=== PATIENT | female | born 1940 | race Caucasian/White ===

== ENCOUNTER 2021-01-08 19:01 | Observation (INO) ==
[2021-01-08] MEDS ORDERED: Lidocaine PATCH 5% PATCH TRANSDERM ONE (20:21)
[2021-01-08] MEDS ORDERED: Lidocaine Patch REMOVE PATCH PATCH OFF SCH (21:00)
[2021-01-08 23:55] LABS: ABS Basophils 0.1 10^3/ul (0-0.2); ABS Eosinophils 0.3 10^3/ul (0-0.6); ABS Lymphocytes 1.7 10^3/ul (1.0-4.8); Eosinophil % 3.5 %; Hematocrit 36 % (35-47); Hemoglobin 11.7 g/dL (12.0-16.0); Lymphocyte % 18.8 %; Mean Corpuscular HGB Conc 33 g/dL (31-36); Mean Corpuscular Hemoglobin 30 pg (27-31); Mean Corpuscular Volume 91 fL (80-97); Mean Platelet Volume 8.3 fL (7.4-10.4); Platelet Count 338 10^3/uL (150-450); Red Blood Count 3.92 10^6 /uL (3.70-4.87); Red Cell Distribution Width 15 % (10-15); White Blood Count 9.2 10^3/uL (3.5-10.8)
[2021-01-09 00:12] LABS: Albumin 3.8 g/dL (3.2-5.2); Albumin/Globulin Ratio 1.1 (1-3); C Reactive Protein 43.51 mg/L (<8.01); Calcium 9.2 mg/dL (8.6-10.3); EGFR African American 140.4 (>60); Globulin 3.4 g/dL (2-4); Potassium 3.4 mmol/L (3.5-5.0); Total Bilirubin 0.5 mg/dL (0.2-1.0); Total Protein 7.2 g/dL (6.4-8.9)
[2021-01-09 01:06] LABS: Urine Appearance Clear; Urine Bilirubin Negative (Negative); Urine Blood 1+ (Negative); Urine Color Yellow; Urine Glucose Negative (Negative); Urine Ketones Negative (Negative); Urine Nitrite Negative (Negative); Urine Protein Negative (Negative); Urine Urobilinogen Negative (Negative)
[2021-01-09] MEDS ORDERED: Ondansetron 4 mg VIAL 2 MG/ML 2 ml VIAL IV PRN (01:08)
[2021-01-09] MEDS ORDERED: Acetaminophen IV 1 GM/100ML 100 ML IV PRN (01:12)
[2021-01-09 01:15] LABS: Urine Bacteria 1+ (Absent); Urine Red Blood Cell Trace(0-2/hpf) (Absent); Urine Squamous Epithelial Cell Present (Absent); Urine White Blood Cell Trace(0-5/hpf) (Absent)
[2021-01-09 01:38] LABS: INR 3.63 (0.86-1.15); Magnesium 1.6 mg/dL (1.9-2.7)
[2021-01-09] MEDS ORDERED: Warfarin per PHARMACY **NOTE FOLLOW UP SCH (02:00)
[2021-01-09 08:39] LABS: INR 3.4 (0.86-1.15)
[2021-01-09] MEDS: CMCS:OMEGA-3 FATTY ACID 1000 mg(NF) PO SCH (08:56)
[2021-01-09] MEDS ORDERED: Furosemide 40 mg/4 ml IV VIAL IV SLOW PU ONE (09:00)
[2021-01-09] MEDS ORDERED: Potassium Chloride LIQUID 20 MEQ/15 ML LIQUID PO ONE (09:00)
[2021-01-09] MEDS ORDERED: Lidocaine Patch REMOVE PATCH PATCH OFF ONE (09:00)
[2021-01-09] MEDS ORDERED: PSYLLIUM HUSK 0.4 GM PO SCH (09:00)
[2021-01-09] MEDS ORDERED: Warfarin - No Order Today **NOTE FOLLOW UP ONE (11:00)
[2021-01-09 11:15] LABS: Calcium 8.9 mg/dL (8.6-10.3); Magnesium 1.8 mg/dL (1.9-2.7)
[2021-01-09 11:20] LABS: EGFR African American 143.6 (>60); EGFR Non-African American 118.7 (>60)
[2021-01-09 11:37] LABS: TSH Ultra Thyroid Stim Horm 0.29 mcIU/mL (0.34-5.60)
[2021-01-09] MEDS ORDERED: Magnesium Sulfate 2 gm BAG 2 GM/50 ML BAG IVPB ONE (12:27)
[2021-01-09] MEDS: Warfarin DAILY REMINDER **NOTE FOLLOW UP SCH (15:35)
[2021-01-10] MEDS ORDERED: Lidocaine PATCH 5% PATCH TRANSDERM ONE (00:31)
[2021-01-10 07:12] LABS: ABS Basophils 0.1 10^3/ul (0-0.2); ABS Eosinophils 0.4 10^3/ul (0-0.6); ABS Lymphocytes 1.4 10^3/ul (1.0-4.8); ABS Neutrophils 3.3 10^3/ul (1.5-7.7); Hematocrit 34 % (35-47); Hemoglobin 11.2 g/dL (12.0-16.0); Lymphocyte % 22.7 %; Mean Corpuscular HGB Conc 33 g/dL (31-36); Mean Corpuscular Hemoglobin 30 pg (27-31); Mean Corpuscular Volume 90 fL (80-97); Mean Platelet Volume 8.1 fL (7.4-10.4); Platelet Count 336 10^3/uL (150-450); Red Blood Count 3.78 10^6 /uL (3.70-4.87); Red Cell Distribution Width 15 % (10-15); White Blood Count 6.1 10^3/uL (3.5-10.8)
[2021-01-10 07:17] LABS: INR 2.75 (0.86-1.15)
[2021-01-10 07:29] LABS: C Reactive Protein 33.58 mg/L (<8.01); Calcium 8.8 mg/dL (8.6-10.3); EGFR African American 140.4 (>60); Potassium 3.9 mmol/L (3.5-5.0)
[2021-01-10] MEDS ORDERED: Perflutren Lipid Microsphere 3 ML VIAL ONE (07:52)
[2021-01-10] MEDS: CMCS:OMEGA-3 FATTY ACID 1000 mg(NF) PO SCH (09:40)
[2021-01-10] MEDS: Psyllium PAK PO SCH (09:41)
[2021-01-10] MEDS: Warfarin DAILY REMINDER **NOTE FOLLOW UP SCH (16:31)
[2021-01-10] MEDS ORDERED: Furosemide 40 mg/4 ml IV VIAL IV SLOW PU ONE (16:37)
[2021-01-10] MEDS: Lidocaine Patch REMOVE PATCH PATCH OFF SCH (21:10)
[2021-01-11 07:46] LABS: Hematocrit 36 % (35-47); Hemoglobin 12.1 g/dL (12.0-16.0); Mean Corpuscular HGB Conc 34 g/dL (31-36); Mean Corpuscular Hemoglobin 30 pg (27-31); Mean Corpuscular Volume 89 fL (80-97); Mean Platelet Volume 8.2 fL (7.4-10.4); Platelet Count 386 10^3/uL (150-450); Red Blood Count 4.06 10^6 /uL (3.70-4.87); Red Cell Distribution Width 15 % (10-15); White Blood Count 6.3 10^3/uL (3.5-10.8)
[2021-01-11 07:58] LABS: EGFR African American 134.3 (>60); Magnesium 1.8 mg/dL (1.9-2.7)
[2021-01-11 08:23] LABS: INR 2.04 (0.86-1.15)
[2021-01-11] MEDS: Psyllium PAK PO SCH (09:03)
[2021-01-11] MEDS: CMCS:OMEGA-3 FATTY ACID 1000 mg(NF) PO SCH (09:41)
[2021-01-11] MEDS: Lidocaine PATCH 5% PATCH TRANSDERM SCH (11:10)
[2021-01-11] MEDS: Warfarin DAILY REMINDER **NOTE FOLLOW UP SCH (16:52)
[2021-01-11] MEDS: Lidocaine Patch REMOVE PATCH PATCH OFF SCH ×2 (22:21→22:22)
[2021-01-12 07:07] LABS: INR 2.06 (0.86-1.15)
[2021-01-12 07:09] LABS: ABS Basophils 0.1 10^3/ul (0-0.2); ABS Eosinophils 0.5 10^3/ul (0-0.6); ABS Lymphocytes 1.8 10^3/ul (1.0-4.8); ABS Monocytes 1.1 10^3/ul (0-0.8); ABS Neutrophils 4.6 10^3/ul (1.5-7.7); Eosinophil % 6.4 %; Hematocrit 38 % (35-47); Hemoglobin 12.5 g/dL (12.0-16.0); Lymphocyte % 22.1 %; Mean Corpuscular HGB Conc 33 g/dL (31-36); Mean Corpuscular Hemoglobin 30 pg (27-31); Mean Corpuscular Volume 89 fL (80-97); Mean Platelet Volume 8.7 fL (7.4-10.4); Platelet Count 404 10^3/uL (150-450); Red Blood Count 4.23 10^6 /uL (3.70-4.87); Red Cell Distribution Width 15 % (10-15); White Blood Count 8.1 10^3/uL (3.5-10.8)
[2021-01-12 07:17] LABS: Calcium 9.7 mg/dL (8.6-10.3); EGFR African American 131.4 (>60); EGFR Non-African American 108.6 (>60); Magnesium 1.8 mg/dL (1.9-2.7); Potassium 4.1 mmol/L (3.5-5.0)
[2021-01-12] MEDS: Lidocaine PATCH 5% PATCH TRANSDERM SCH (09:23)
[2021-01-12] MEDS: CMCS:OMEGA-3 FATTY ACID 1000 mg(NF) PO SCH (09:26)
[2021-01-12] MEDS: Psyllium PAK PO SCH (09:31)
[2021-01-12] MEDS ORDERED: Lactated Ringers 1000 ml BAG 500 ML IV ONE (14:12)
[2021-01-12] MEDS: Warfarin DAILY REMINDER **NOTE FOLLOW UP SCH (17:57)
[2021-01-12] MEDS: Lidocaine Patch REMOVE PATCH PATCH OFF SCH ×2 (19:30)
[2021-01-13] MEDS: Psyllium PAK PO SCH (09:07)
[2021-01-13] MEDS: Lidocaine PATCH 5% PATCH TRANSDERM SCH (09:08)
[2021-01-13 09:40] LABS: Hematocrit 40 % (35-47); Hemoglobin 13.1 g/dL (12.0-16.0); Mean Corpuscular HGB Conc 33 g/dL (31-36); Mean Corpuscular Hemoglobin 29 pg (27-31); Mean Corpuscular Volume 90 fL (80-97); Mean Platelet Volume 8.3 fL (7.4-10.4); Platelet Count 430 10^3/uL (150-450); Red Blood Count 4.48 10^6 /uL (3.70-4.87); Red Cell Distribution Width 15 % (10-15); White Blood Count 7.6 10^3/uL (3.5-10.8)
[2021-01-13 09:45] LABS: INR 2.08 (0.86-1.15)
[2021-01-13] MEDS: CMCS:OMEGA-3 FATTY ACID 1000 mg(NF) PO SCH (09:52)
[2021-01-13 09:57] LABS: Calcium 9.9 mg/dL (8.6-10.3); EGFR African American 118.7 (>60); EGFR Non-African American 98.1 (>60); Magnesium 1.8 mg/dL (1.9-2.7); Potassium 4.5 mmol/L (3.5-5.0)
[2021-01-13] MEDS ORDERED: Benzocaine/Menthol LOZ PO PRN (14:30)
[2021-01-13] MEDS: Warfarin DAILY REMINDER **NOTE FOLLOW UP SCH (17:01)
[2021-01-14] MEDS: Lidocaine Patch REMOVE PATCH PATCH OFF SCH
[2021-01-14 07:05] LABS: ABS Basophils 0.1 10^3/ul (0-0.2); ABS Eosinophils 0.3 10^3/ul (0-0.6); ABS Lymphocytes 1.5 10^3/ul (1.0-4.8); ABS Monocytes 1.5 10^3/ul (0-0.8); Eosinophil % 2.2 %; Hematocrit 38 % (35-47); Hemoglobin 12.5 g/dL (12.0-16.0); Lymphocyte % 13.2 %; Mean Corpuscular HGB Conc 33 g/dL (31-36); Mean Corpuscular Hemoglobin 29 pg (27-31); Mean Corpuscular Volume 89 fL (80-97); Mean Platelet Volume 8.5 fL (7.4-10.4); Platelet Count 352 10^3/uL (150-450); Red Blood Count 4.24 10^6 /uL (3.70-4.87); Red Cell Distribution Width 15 % (10-15); White Blood Count 11.4 10^3/uL (3.5-10.8)
[2021-01-14 07:17] LABS: Calcium 9.7 mg/dL (8.6-10.3); EGFR Non-African American 89.3 (>60); Magnesium 1.8 mg/dL (1.9-2.7); Potassium 4.2 mmol/L (3.5-5.0)
[2021-01-14] MEDS: Lidocaine PATCH 5% PATCH TRANSDERM SCH (07:40)
[2021-01-14] MEDS: CMCS:OMEGA-3 FATTY ACID 1000 mg(NF) PO SCH (07:40)
[2021-01-14] MEDS: Psyllium PAK PO SCH (07:43)
[2021-01-14] MEDS ORDERED: Benzocaine/Menthol LOZ PO SCH (08:00)
[2021-01-14] MEDS ORDERED: Lactated Ringers 500 ml BAG 500 ML IV ONE ×2 (08:11→08:12)
[2021-01-14 08:12] VITALS: BP 123/59
[2021-01-14] MEDS ORDERED: PAIN RELIEVING RUB (MENTHOL/SALICYLATE) 1 APPLIC TUBE TOPICAL SCH (09:00)
[2021-01-14] MEDS ORDERED: Sulfamethox/Trimethoprim DS TAB 800/160 mg PO SCH (09:00)
== END 2021-01-14 11:45 ==
LOC: ED 19:01 → MED 19:01 → SUATTDRO 01-09 02:33 → MED 01-09 04:40
PROVIDERS: ADMIT Hospitalist; ATTEND Internal Medicine